=== PATIENT | female | born 1990 | race Caucasian/White ===

== ENCOUNTER 2017-10-07 21:17 | Emergency (ER) | payer MEDICAID, OTHER ==
[~2017-10-07] VITALS: Ht 162.6 cm; Wt 52.0 kg
[~2017-10-07 21:17] MED LIST: ALPR0.5T99 PO; LORTA5 PO; SULF1TAB47 PO
[2017-10-07 21:52] VITALS: BP 101/60; PULSE 97; RESP 20; TEMP 98.8; O2SAT 99
--- NOTE | 2017-10-07 22:27 | PD ---
HPI Chief Complaint: Back/ Neck Pain or Injury Time Seen by Provider: 22:12 Travel History International Travel<30 days: No Contact w/Intl Traveler<30days: No Traveled to known affect area: No History of Present Illness HPI 27-year-old female presents emergency department for evaluation of back tightness and pain in her mid to lower back. Patient states that at work she lifts heavy boxes all day. She does not recall an actual injury but states she has been moving a lot lately. She denies any saddle paresthesia, loss of bowel or bladder, lower extremity weakness. She has not had any difficulty breathing. She is not having difficulty going to the bathroom. Patient does report that sometimes when she lays down at night with her right arm up, it will go numb and become tingly. She states she has changed positions and sometimes set up for the feeling to come back. She denies any injury there. She has no other focal deficits or weakness. She denies any history of IV drugs she has no other symptoms to report. [facility] Past Medical History Medical History: Denies Significant Hx Anxiety: Yes Immunizations Current: Yes Tetanus Vaccination: Unknown Influenza Vaccination: No ?: Not Past Surgical History Abdominal Surgery: Yes (herniorrhaphy) Cholecystectomy: Yes Other Surgery: Yes (HERNIA REPAIR) Social History Alcohol Use: Yes (couple times per week) Tobacco Use: No Substance Use: No Allergies-Medications (Allergen,Severity, Reaction): Coded Allergies: No Known Allergies (Verified Adverse Reaction, Unknown, 10/07/17) Reported Meds & Prescriptions Reported Meds & Active Scripts Active Robaxin (Methocarbamol) 500 Mg Tab 500 Mg PO QID PRN Ibuprofen 600 Mg Tab 600 Mg PO Q8HR PRN Review of Systems Except as stated in HPI: all other systems reviewed are Neg Physical Exam Narrative GENERAL: Well-nourished female patient in no acute distress SKIN: Focused skin assessment warm/dry. HEAD: Atraumatic. Normocephalic. EYES: Pupils equal and round. No scleral icterus. No injection or drainage. ENT: No nasal bleeding or discharge. Mucous membranes pink and moist. NECK: Trachea midline. No JVD. CARDIOVASCULAR: Regular rate and rhythm. No murmur appreciated. RESPIRATORY: No accessory muscle use. Clear to auscultation. Breath sounds equal bilaterally. GASTROINTESTINAL: Abdomen soft, non-tender, nondistended. Hepatic and splenic margins not palpable. MUSCULOSKELETAL: No obvious deformities. No clubbing. No cyanosis. No edema. No spinal tenderness. NEUROLOGICAL: Awake and alert. No obvious cranial nerve deficits. Motor grossly within normal limits. Normal speech. PSYCHIATRIC: Appropriate mood and affect; insight and judgment normal. Data Data Last Documented VS Vital Signs Date Time Temp Pulse Resp B/P (MAP) Pulse Ox O2 Delivery O2 Flow Rate FiO2 10/07/17 21:52 98.8 97 20 101/60 (74) 99 Orders Orders Ketorolac Inj (Toradol Inj) (10/07/17 22:30) Orphenadrine Inj (Norflex Inj) (10/07/17 22:30) Ed Discharge Order (10/07/17 22:53) [facility] Medical Decision Making Medical Screen Exam Complete: Yes Emergency Medical Condition: Yes Medical Record Reviewed: Yes Differential Diagnosis Muscle strain versus discogenic pain versus radiculopathy versus spasm Narrative Course 27-year-old female presents emergency department for evaluation. Patient appears without distress. Her vital signs are stable. Physical exam and history are consistent with a thoracic back strain. I have encouraged follow- up with primary care provider. She will be provided pain control. She agrees to return immediately with acute worsening symptoms. Diagnosis Primary Impression: Back strain Qualified Codes: S39.012A - Strain of muscle, fascia and tendon of lower back , initial encounter Referrals: Primary Care Physician Patient Instructions: General Instructions, Thoracic Back Strain (ED), Upper Back Exercises (GEN) Med/Other Pt SpecificInfo: Prescription(s) given Scripts Methocarbamol (Robaxin) 500 Mg Tab 500 MG PO QID Y for MUSCLE SPASM, #20 TAB 0 Refills Prov: Pennie Mendoza 10/07/17 Ibuprofen (Ibuprofen) 600 Mg Tab 600 MG PO Q8HR Y for PAIN, #30 TAB 0 Refills Prov: Pennie Mendoza 10/07/17 Disposition: 01 DISCHARGE HOME Condition: Stable Pennie Mendoza October 07, 2017 22:27
[2017-10-07] MEDS ORDERED: KETOROLAC TROMETHAMINE 60 MG/2 ML (IM) VIAL IM ONE (22:30)
[2017-10-07] MEDS ORDERED: ORPHENADRINE INJ 60 MG/2 ML AMP IM ONE (22:30)
[2017-10-07] MEDS ORDERED: IBUP-232 PO (22:56)
[2017-10-07] MEDS ORDERED: ROBA500T PO (22:56)
== END 2017-10-07 23:10 | disposition home or self-care (01) ==
LOC: NEPD 21:17
DX: S39.012A Strain of muscle, fascia and tendon of lower back, initial encounter (principal); X50.9XXA Other and unspecified overexertion or strenuous movements or postures, initial encounter
CPT/HCPCS: 96372; 99283; J1885; J2360